=== PATIENT | male | born 1945 | race African-American/Black ===

== ENCOUNTER 2017-07-04 05:49 | Inpatient (IN) | payer OTHER ==
[~2017-07-04] VITALS: Ht 175.3 cm; Wt 79.5 kg
[2017-07-04] VITALS (8 sets, daily range): BP systolic 111–149; BP diastolic 51–97
[2017-07-04] MEDS ORDERED: METHYLPREDNISOLONE SOD SUCC 125 MG/2 ML VIAL IV STA (06:03)
[2017-07-04] MEDS ORDERED: IPRATROPIUM BROMIDE (0.02%) 0.5MG/2.5ML NEB HHN STA (06:03)
[2017-07-04] MEDS ORDERED: ALBUTEROL (0.083%) 2.5MG/3ML NEB HHN STA (06:03)
[2017-07-04] MEDS ORDERED: MAGNESIUM 2 G PREMIX 50 ML IV ONE (06:15)
[2017-07-04] MEDS ORDERED: LEVOFLOXACIN 500MG PREMIX 100 ML IV ONE (06:30)
[2017-07-04 07:01] LABS: BASOPHILS % 0.7 % (0.0-2.0); EOSINOPHILS % 5.3 % (0.0-5.0); HEMATOCRIT. 38.7 % (42.0-52.0); HEMOGLOBIN. 12.4 g/dL (14.0-18.0); LYMPHOCYTES % 13.8 % (20.0-50.0); MEAN CORPUSCULAR HEMOGLOBIN 27.2 pg (28.0-32.0); MEAN CORPUSCULAR VOLUME 84.9 fL (80.0-94.0); MEAN PLATELET VOLUME 7.5 fl (7.4-10.4); MONOCYTES % 6.6 % (2.0-8.0); NEUTROPHILS % 73.6 % (40.0-76.0); PLATELET 262 x1000/uL (130-400); RED BLOOD CELL COUNT 4.55 mill/uL (4.7-6.1); RED CELL DISTRIBUTION WIDTH 18.7 % (11.6-14.6)
[2017-07-04 07:02] LABS: CHLORIDE 101 mEq/L (98-107)
[2017-07-04 07:07] LABS: TROPONIN I < 0.02 ng/mL (0.00-0.04)
[2017-07-04 07:09] LABS: PARTIAL THROMBOPLASTIN TIME 26.3 sec (23.4-31.0); PROTHROMBIN TIME 10.1 sec (9.4-11.6)
[2017-07-04 09:33] LABS: BG BASE EXCESS -1.4 mmol/L (-2.0-2.0); BG BILEVEL POS AIRWAY PRESSURE 15/5; BG CARBOXYHEMOGLOBIN 0.7 % (0.5-1.5); BG FRACTION INSPIRED OXYGEN 40; BG HCO3 ACT 24.3 mmol/L (22.0-26.0); BG METHEMOGLOBIN 0.3 % (0.0-1.5); BG PH 7.351 (7.350-7.450); BG PO2 113.8 mmHg (75.0-100.0); BG SAMPLE SITE RIGHT BRACHIAL; BG TOTAL HEMOGLOBIN 12.6 g/dL (12.0-18.0); BG VENT MODE MASK - BIPAP; BG VENT RATE 16 set
[2017-07-04] MEDS ORDERED: ONDANSETRON HCL 4MG/2ML VIAL IV PRN (13:00)
[2017-07-04] MEDS ORDERED: DOCUSATE SODIUM 100MG CAPSULE PO PRN (13:00)
[2017-07-04] MEDS ORDERED: MAGNESIUM/ALUMINUM HYDROXIDE/SIMETHICONE 30ML UDC PO PRN (13:00)
[2017-07-04] MEDS ORDERED: HYDROCODONE/ACETAMINOPHEN 5/325MG TABLET PO PRN (13:00)
[2017-07-04] MEDS ORDERED: CLONIDINE 0.1MG TABLET PO PRN (13:00)
[2017-07-04] MEDS ORDERED: ACETAMINOPHEN 325MG TABLET PO PRN (13:00)
[2017-07-04] MEDS: BUDESONIDE 0.5MG/2ML NEB HHN SCH ×2 (13:14→20:05)
[2017-07-04] MEDS: AZITHROMYCIN 500 MG TABLET PO SCH (14:13)
[2017-07-04] MEDS: METHYLPREDNISOLONE SOD SUCC 40 MG/ML VIAL IV SCH ×2 (14:13→21:07)
[2017-07-04] MEDS: ENOXAPARIN 40MG/0.4ML SYR SUBCUT SCH (14:13)
[2017-07-04 16:06] LABS: CHLORIDE 100 mEq/L (98-107)
[2017-07-04 16:14] LABS: CREATINE KINASE 171 IU/L (39-308); CREATINE KINASE MB FRACTION 2.7 ng/mL (0.5-3.6); TROPONIN I < 0.02 ng/mL (0.00-0.04)
[2017-07-04] MEDS ORDERED: THIAMINE HCL 100MG TABLET PO NR (16:30)
[2017-07-04] MEDS ORDERED: NICOTINE 21MG PATCH TD NR (17:00)
[2017-07-04] MEDS ORDERED: DEXTROSE 50% WATER 50ML SYRINGE IV PRN (17:15)
[2017-07-04] MEDS: BLOOD SUGAR DIAGNOSTIC STRIP TEST SCH ×2 (17:39→20:56)
[2017-07-04] MEDS: INSULIN LISPRO 100 UNITS/ML SUBCUT SCH ×2 (17:49→21:06)
[2017-07-04 18:39] LABS: CLARITY URINE CLEAR (CLEAR); COLOR URINE YELLOW (YELLOW); KETONES URINE NEGATIVE (NEGATIVE); LEUKOCYTE ESTERASE URINE NEGATIVE (NEGATIVE); NITRITE URINE NEGATIVE (NEGATIVE); OCCULT BLOOD URINE NEGATIVE (NEGATIVE); PH URINE 6.5 (4.5-8.0); PROTEIN URINE NEGATIVE (NEGATIVE); SPECIFIC GRAVITY URINE 1.009 (1.005-1.030)
[2017-07-04 19:12] LABS: *AMPHETAMINES SCREEN URINE NEGATIVE (NEGATIVE); *BARBITURATES SCREEN URINE NEGATIVE (NEGATIVE); *BENZODIAZEPINES SCREEN URINE NEGATIVE (NEGATIVE); *COCAINE SCREEN URINE NEGATIVE (NEGATIVE); CANNABINOID URINE SCREEN NEGATIVE (NEGATIVE); METHADONE URINE SCREEN NEGATIVE (NEGATIVE); OPIATES URINE SCREEN NEGATIVE (NEGATIVE); PHENCYCLIDINE URINE SCREEN NEGATIVE (NEGATIVE)
[2017-07-04] MEDS: IPRATROPIUM/ALBUTEROL 0.5-3(2.5)MG/3ML NEB INH PRN (20:05)
[2017-07-04] MEDS: FAMOTIDINE 20MG/2ML VIAL IV SCH (21:07)
[2017-07-05] VITALS (8 sets, daily range): BP systolic 101–147; BP diastolic 25–98
[2017-07-05 00:08] LABS: CREATINE KINASE 170 IU/L (39-308); CREATINE KINASE MB FRACTION 2.5 ng/mL (0.5-3.6); TROPONIN I < 0.02 ng/mL (0.00-0.04)
[2017-07-05] MEDS ORDERED: ASPI-1159 PO (04:21)
[2017-07-05] MEDS ORDERED: METF500T4 PO (04:22)
[2017-07-05] MEDS: BLOOD SUGAR DIAGNOSTIC STRIP TEST SCH ×3 (05:27→16:27)
[2017-07-05] MEDS: METHYLPREDNISOLONE SOD SUCC 40 MG/ML VIAL IV SCH ×2 (05:57→14:00)
[2017-07-05] MEDS: INSULIN LISPRO 100 UNITS/ML SUBCUT SCH ×2 (07:20→11:39)
[2017-07-05 07:35] LABS: BASOPHILS % 0.4 % (0.0-2.0); HEMATOCRIT. 36.1 % (42.0-52.0); HEMOGLOBIN. 11.7 g/dL (14.0-18.0); MEAN CORPUSCULAR HEMOGLOBIN 27.2 pg (28.0-32.0); MEAN CORPUSCULAR VOLUME 84.3 fL (80.0-94.0); MONOCYTES % 4.6 % (2.0-8.0); PLATELET 281 x1000/uL (130-400); RED BLOOD CELL COUNT 4.29 mill/uL (4.7-6.1); RED CELL DISTRIBUTION WIDTH 18.9 % (11.6-14.6)
[2017-07-05] MEDS: BUDESONIDE 0.5MG/2ML NEB HHN SCH (08:36)
[2017-07-05] MEDS: IPRATROPIUM/ALBUTEROL 0.5-3(2.5)MG/3ML NEB INH PRN ×2 (08:37→12:39)
[2017-07-05] MEDS: AZITHROMYCIN 500 MG TABLET PO SCH (08:44)
[2017-07-05] MEDS: FAMOTIDINE 20MG/2ML VIAL IV SCH (08:45)
[2017-07-05] MEDS ORDERED: FOLIC ACID 1MG TABLET PO SCH (09:00)
[2017-07-05] MEDS ORDERED: NICOTINE 21MG PATCH TD SCH (09:00)
[2017-07-05] MEDS ORDERED: MULTIVITAMINS,THER W-MINERALS TABLET PO SCH (09:00)
[2017-07-05] MEDS ORDERED: THIAMINE HCL 100MG TABLET PO SCH (09:00)
[2017-07-05] MEDS ORDERED: FOLI-43 PO (13:26)
[2017-07-05] MEDS ORDERED: NICO-682 TD (13:26)
[2017-07-05] MEDS ORDERED: THIA100T72 PO (13:26)
[2017-07-05] MEDS ORDERED: DOCU-138 PO (13:26)
[2017-07-05] MEDS ORDERED: AZIT500T5 PO (13:26)
[2017-07-05] MEDS ORDERED: LIP40 PO (13:26)
[2017-07-05] MEDS ORDERED: ASPIRIN 81MG EC TABLET PO SCH (14:00)
[2017-07-05] MEDS: ENOXAPARIN 40MG/0.4ML SYR SUBCUT SCH (14:47)
[2017-07-05] MEDS ORDERED: METFORMIN HCL 500MG TABLET PO SCH (17:20)
[2017-07-05] MEDS ORDERED: ATORVASTATIN CALCIUM 40MG TABLET PO SCH (21:00)
== END 2017-07-05 17:21 | disposition home or self-care (01) | DRG 193 ==
LOC: ER 05:50 → EDBEDREQ 07:47 → ENRESERV 09:53 → 3WST 11:29
PROVIDERS: ADMIT Internal Medicine; ATTEND Internal Medicine
PROC: 5A09357 Assistance with Respiratory Ventilation, Less than 24 Consecutive Hours, Continuous Positive Airway Pressure (ICD-10-PCS; principal; 2017-07-04)
DX: J18.9 Pneumonia, unspecified organism (principal); J96.01 Acute respiratory failure with hypoxia; J44.1 Chronic obstructive pulmonary disease with (acute) exacerbation; J44.0 Chronic obstructive pulmonary disease with (acute) lower respiratory infection; D64.9 Anemia, unspecified; I10 Essential (primary) hypertension; F17.210 Nicotine dependence, cigarettes, uncomplicated; E11.65 Type 2 diabetes mellitus with hyperglycemia; K27.9 Peptic ulcer, site unspecified, unspecified as acute or chronic, without hemorrhage or perforation; F19.10 Other psychoactive substance abuse, uncomplicated; Z91.19 Patient's noncompliance with other medical treatment and regimen; Z71.51 Drug abuse counseling and surveillance of drug abuser; Z71.6 Tobacco abuse counseling
CPT/HCPCS: 36415; 36600; 71045; 80048; 80053; 80061; 80305; 81003; 82375; 82550; 82553; 82805; 82962; 83036; 83605; 83690; 83735; 83880; 84443; 84484; 85025; 85610; 85730; 87040; 87070; 87086; 87804; 93005; 93970; 94640; 94644; 94660; 96365; 96366; 96368; 96375; 99291; J1650; J1815; J1956; J2920; J2930; J3475; J3490; J7611; J7620; J7626

== ENCOUNTER 2017-08-19 07:26 | Inpatient (IN) | payer OTHER ==
[~2017-08-19] VITALS: Ht 175.3 cm; Wt 81.4 kg
[~2017-08-19 07:26] MED LIST: ASPI-1159 PO; AZIT500T5 PO; DOCU-138 PO; FOLI-43 PO; LIP40 PO; METF500T4 PO; NICO-682 TD; THIA100T72 PO
[2017-08-19] MEDS ORDERED: METHYLPREDNISOLONE SOD SUCC 125 MG/2 ML VIAL IV STA (07:28)
[2017-08-19] MEDS ORDERED: IPRATROPIUM/ALBUTEROL 0.5-3(2.5)MG/3ML NEB HHN ONE (07:30)
[2017-08-19] MEDS ORDERED: MAGNESIUM 2 G PREMIX 50 ML IV ONE (07:30)
[2017-08-19 08:07] LABS: BASOPHILS % 1.1 % (0.0-2.0); EOSINOPHILS % 13.9 % (0.0-5.0); HEMATOCRIT. 39.9 % (42.0-52.0); LYMPHOCYTES % 18.3 % (20.0-50.0); MEAN CORPUSCULAR HEMOGLOBIN 28.2 pg (28.0-32.0); MEAN CORPUSCULAR VOLUME 86.4 fL (80.0-94.0); MEAN PLATELET VOLUME 7.2 fl (7.4-10.4); MONOCYTES % 10.3 % (2.0-8.0); NEUTROPHILS % 56.4 % (40.0-76.0); PLATELET 306 x1000/uL (130-400); RED BLOOD CELL COUNT 4.62 mill/uL (4.7-6.1); RED CELL DISTRIBUTION WIDTH 18.1 % (11.6-14.6)
[2017-08-19 08:09] LABS: CHLORIDE 104 mEq/L (98-107)
[2017-08-19 08:12] LABS: PARTIAL THROMBOPLASTIN TIME 28.7 sec (23.4-31.0); PROTHROMBIN TIME 10.2 sec (9.4-11.6)
[2017-08-19 09:34] LABS: BG BASE EXCESS 0.1 mmol/L (-2.0-2.0); BG CARBOXYHEMOGLOBIN 1.6 % (0.5-1.5); BG DEOXYHEMOGLOBIN 9.5 % (0.0-5.0); BG FRACTION INSPIRED OXYGEN 21; BG HCO3 ACT 25.5 mmol/L (22.0-26.0); BG METHEMOGLOBIN 0.1 % (0.0-1.5); BG OXYHEMOGLOBIN 88.8 % (94.0-97.0); BG PCO2 44.1 mmHg (35.0-45.0); BG PO2 60.2 mmHg (75.0-100.0); BG SAMPLE SITE RIGHT BRACHIAL; BG TOTAL HEMOGLOBIN 13.7 g/dL (12.0-18.0); BG VENT MODE ROOM AIR
[2017-08-19 12:12] VITALS: BP 142/98
[2017-08-19 12:30] VITALS: BP 142/98
[2017-08-19 13:00] VITALS: BP 142/98
[2017-08-19] MEDS ORDERED: CLONIDINE 0.1MG TABLET PO SCH (13:45)
[2017-08-19] MEDS: METHYLPREDNISOLONE SOD SUCC 40 MG/ML VIAL IV SCH ×2 (16:13→21:03)
[2017-08-19] MEDS: ENOXAPARIN 40MG/0.4ML SYR SUBCUT SCH (16:14)
[2017-08-19] MEDS: AZITHROMYCIN 500 MG TABLET PO SCH (16:14)
[2017-08-19] MEDS: SODIUM CHLORIDE 0.9% 1,000 ML IV SCH (16:16)
[2017-08-19 16:20] VITALS: BP 137/87
[2017-08-19] MEDS ORDERED: DEXTROSE 50% WATER 50ML SYRINGE IV PRN (18:15)
[2017-08-19] MEDS ORDERED: DOCUSATE SODIUM 100MG CAPSULE PO PRN (18:15)
[2017-08-19] MEDS: FOLIC ACID 1MG TABLET PO SCH (19:01)
[2017-08-19] MEDS: THIAMINE HCL 100MG TABLET PO SCH (19:01)
[2017-08-19] MEDS: METFORMIN HCL 500MG TABLET PO SCH (19:01)
[2017-08-19] MEDS: ASPIRIN 81MG EC TABLET PO SCH (19:01)
[2017-08-19 20:00] VITALS: BP 129/74
[2017-08-19] MEDS ORDERED: ATORVASTATIN CALCIUM 40MG TABLET PO SCH (21:00)
[2017-08-19] MEDS: BLOOD SUGAR DIAGNOSTIC STRIP TEST SCH (21:03)
[2017-08-19] MEDS: NICOTINE 21MG PATCH TD SCH (21:05)
[2017-08-19] MEDS: BUDESONIDE 0.5MG/2ML NEB HHN SCH (21:34)
[2017-08-19] MEDS: IPRATROPIUM/ALBUTEROL 0.5-3(2.5)MG/3ML NEB HHN SCH (21:44)
[2017-08-19] MEDS ORDERED: CLONIDINE 0.1MG TABLET PO PRN (21:45)
[2017-08-19] MEDS: INSULIN LISPRO 100 UNITS/ML SUBCUT SCH (21:50)
[2017-08-20] VITALS: BP 136/80
[2017-08-20] MEDS: IPRATROPIUM/ALBUTEROL 0.5-3(2.5)MG/3ML NEB HHN SCH ×3 (00:38→09:27)
[2017-08-20 04:00] VITALS: BP 124/72
[2017-08-20] MEDS: METHYLPREDNISOLONE SOD SUCC 40 MG/ML VIAL IV SCH (05:36)
[2017-08-20] MEDS: SODIUM CHLORIDE 0.9% 1,000 ML IV SCH (05:36)
[2017-08-20] MEDS: BLOOD SUGAR DIAGNOSTIC STRIP TEST SCH ×2 (05:42→12:37)
[2017-08-20] MEDS: INSULIN LISPRO 100 UNITS/ML SUBCUT SCH ×2 (05:52→12:40)
[2017-08-20 06:24] LABS: BASOPHILS % 0.2 % (0.0-2.0); HEMATOCRIT. 39.7 % (42.0-52.0); LYMPHOCYTES % 11.3 % (20.0-50.0); MEAN CORPUSCULAR HEMOGLOBIN 28.3 pg (28.0-32.0); MEAN CORPUSCULAR VOLUME 86.5 fL (80.0-94.0); MEAN PLATELET VOLUME 7.7 fl (7.4-10.4); MONOCYTES % 3.2 % (2.0-8.0); NEUTROPHILS % 85.3 % (40.0-76.0); PLATELET 308 x1000/uL (130-400); RED BLOOD CELL COUNT 4.59 mill/uL (4.7-6.1)
[2017-08-20 07:23] LABS: CHLORIDE 103 mEq/L (98-107)
[2017-08-20 08:00] VITALS: BP 103/79
[2017-08-20] MEDS: AZITHROMYCIN 500 MG TABLET PO SCH (08:27)
[2017-08-20] MEDS: ASPIRIN 81MG EC TABLET PO SCH (08:27)
[2017-08-20] MEDS: FOLIC ACID 1MG TABLET PO SCH (08:27)
[2017-08-20] MEDS: THIAMINE HCL 100MG TABLET PO SCH (08:27)
[2017-08-20] MEDS: METFORMIN HCL 500MG TABLET PO SCH (08:27)
[2017-08-20] MEDS: ENOXAPARIN 40MG/0.4ML SYR SUBCUT SCH (08:28)
[2017-08-20] MEDS: NICOTINE 21MG PATCH TD SCH (08:30)
[2017-08-20] MEDS: BUDESONIDE 0.5MG/2ML NEB HHN SCH (09:27)
[2017-08-20 13:13] VITALS: BP 136/86
== END 2017-08-20 13:20 | disposition home or self-care (01) | DRG 189 ==
LOC: ER 07:43 → ENRESERV 11:22 → 5WST 11:30 → EDBEDREQ 11:38
PROVIDERS: ADMIT Internal Medicine; ATTEND Internal Medicine
DX: J96.02 Acute respiratory failure with hypercapnia (principal); J44.1 Chronic obstructive pulmonary disease with (acute) exacerbation; E11.9 Type 2 diabetes mellitus without complications; F17.210 Nicotine dependence, cigarettes, uncomplicated; I10 Essential (primary) hypertension; Z79.82 Long term (current) use of aspirin; Z79.84 Long term (current) use of oral hypoglycemic drugs; Z79.899 Other long term (current) drug therapy; Z79.2 Long term (current) use of antibiotics
CPT/HCPCS: 36415; 36600; 71045; 80053; 82375; 82565; 82805; 82962; 83036; 83605; 83880; 84484; 85025; 85610; 85730; 87040; 87086; 93005; 94640; J1650; J1815; J2920; J2930; J3475; J7030; J7620; J7626

== ENCOUNTER 2018-09-10 10:44 | Inpatient (IN) | payer MEDICARE, OTHER ==
[~2018-09-10] VITALS: Ht 175.3 cm; Wt 78.5 kg
[~2018-09-10 10:44] MED LIST changes: +METF-414 PO; -METF500T4 PO
[2018-09-10] MEDS ORDERED: IPRATROPIUM BROMIDE (0.02%) 0.5MG/2.5ML NEB HHN STA (10:48)
[2018-09-10] MEDS ORDERED: METHYLPREDNISOLONE SOD SUCC 125 MG/2 ML VIAL IV STA (10:48)
[2018-09-10] MEDS ORDERED: SODIUM CHLORIDE 0.9% 1,000 ML IV ONE (10:48)
[2018-09-10] MEDS ORDERED: MAGNESIUM 2 G PREMIX 50 ML IV ONE (11:00)
[2018-09-10] MEDS: ALBUTEROL (0.083%) 2.5MG/3ML NEB HHN SCH ×3 (11:00→12:00)
[2018-09-10 11:02] LABS: BASOPHILS % 1.1 % (0.0-2.0); EOSINOPHILS % 9.1 % (0.0-5.0); HEMOGLOBIN. 14.8 g/dL (14.0-18.0); LYMPHOCYTES % 28.5 % (20.0-50.0); MEAN CORPUSCULAR HEMOGLOBIN 30.4 pg (28.0-32.0); MEAN CORPUSCULAR VOLUME 92.3 fL (80.0-94.0); MEAN PLATELET VOLUME 7.1 fl (7.4-10.4); MONOCYTES % 9.3 % (2.0-8.0); PLATELET 263 x1000/uL (130-400); RED BLOOD CELL COUNT 4.87 mill/uL (4.7-6.1); RED CELL DISTRIBUTION WIDTH 14.6 % (11.6-14.6)
[2018-09-10 11:09] LABS: CHLORIDE 111 mEq/L (98-107); INR 0.9; PROTHROMBIN TIME 9.6 sec (9.6-11.0)
[2018-09-10] MEDS ORDERED: ACETAMINOPHEN 325MG TABLET PO PRN (13:15)
[2018-09-10] MEDS ORDERED: CLONIDINE 0.1MG TABLET PO PRN (13:15)
[2018-09-10] MEDS ORDERED: METHYLPREDNISOLONE SOD SUCC 40 MG/ML VIAL IV SCH (13:15)
[2018-09-10] MEDS ORDERED: IPRATROPIUM/ALBUTEROL 0.5-3(2.5)MG/3ML NEB HHN PRN (13:15)
[2018-09-10] MEDS ORDERED: ONDANSETRON HCL 4MG/2ML INJ IV PRN (13:15)
[2018-09-10 16:00] VITALS: BP 144/88
[2018-09-10] MEDS ORDERED: IPRATROPIUM/ALBUTEROL 0.5-3(2.5)MG/3ML NEB HHN SCH (16:00)
[2018-09-10 18:00] VITALS: BP 64/42
[2018-09-10] MEDS: MONTELUKAST SODIUM 10MG TABLET PO SCH (18:41)
[2018-09-10] MEDS: METFORMIN HCL 500MG TABLET PO SCH (18:42)
[2018-09-10] MEDS: ENOXAPARIN 40MG/0.4ML SYR SUBCUT SCH (18:43)
[2018-09-10] MEDS ORDERED: ALBUTEROL (0.083%) 2.5MG/3ML NEB HHN PRN (19:00)
[2018-09-10] MEDS ORDERED: DEXTROSE 50% WATER 50ML SYRINGE IV PRN (19:00)
[2018-09-10 20:00] VITALS: BP 137/83
[2018-09-10] MEDS: IPRATROPIUM/ALBUTEROL 0.5-3(2.5)MG/3ML NEB HHN SCH (20:13)
[2018-09-10] MEDS ORDERED: ZOLPIDEM TARTRATE 5MG TABLET PO PRN (21:00)
[2018-09-10] MEDS ORDERED: AZITHROMYCIN 500 MG in DEXT 5% WATER 250 ML IV SCH (21:00)
[2018-09-10] MEDS: AMLODIPINE 5MG TABLET PO SCH (21:20)
[2018-09-10] MEDS: BLOOD SUGAR DIAGNOSTIC STRIP TEST SCH (21:25)
[2018-09-10] MEDS: METHYLPREDNISOLONE SOD SUCC 40 MG/ML VIAL IV SCH (21:31)
[2018-09-10] MEDS: INSULIN LISPRO 100 UNITS/ML SUBCUT SCH (21:32)
[2018-09-10 22:00] VITALS: BP 126/86
[2018-09-10 23:30] VITALS: BP 126/85
[2018-09-11] VITALS (9 sets, daily range): BP systolic 107–147; BP diastolic 61–98
[2018-09-11 06:02] LABS: BASOPHILS % 0.2 % (0.0-2.0); HEMATOCRIT. 41.6 % (42.0-52.0); HEMOGLOBIN. 13.9 g/dL (14.0-18.0); LYMPHOCYTES % 8.7 % (20.0-50.0); MEAN CORPUSCULAR HEMOGLOBIN 30.8 pg (28.0-32.0); MEAN CORPUSCULAR VOLUME 92.5 fL (80.0-94.0); MEAN PLATELET VOLUME 7.4 fl (7.4-10.4); MONOCYTES % 1.3 % (2.0-8.0); NEUTROPHILS % 89.8 % (40.0-76.0); PLATELET 232 x1000/uL (130-400); RED CELL DISTRIBUTION WIDTH 14.8 % (11.6-14.6)
[2018-09-11] MEDS: METHYLPREDNISOLONE SOD SUCC 40 MG/ML VIAL IV SCH ×2 (06:04→14:55)
[2018-09-11 06:07] LABS: CHLORIDE 105 mEq/L (98-107)
[2018-09-11] MEDS: INSULIN LISPRO 100 UNITS/ML SUBCUT SCH ×3 (07:10→18:24)
[2018-09-11] MEDS: BLOOD SUGAR DIAGNOSTIC STRIP TEST SCH ×3 (07:10→17:01)
[2018-09-11] MEDS: METFORMIN HCL 500MG TABLET PO SCH ×2 (08:08→17:10)
[2018-09-11] MEDS: AMLODIPINE 5MG TABLET PO SCH (08:10)
[2018-09-11] MEDS: ENOXAPARIN 40MG/0.4ML SYR SUBCUT SCH (08:10)
[2018-09-11] MEDS: IPRATROPIUM/ALBUTEROL 0.5-3(2.5)MG/3ML NEB HHN SCH ×3 (08:39→16:15)
[2018-09-11 12:42] LABS: BG CARBOXYHEMOGLOBIN 0.4 % (0.5-1.5); BG DEOXYHEMOGLOBIN 3.5 % (0.0-5.0); BG FRACTION INSPIRED OXYGEN 21; BG METHEMOGLOBIN 0.4 % (0.0-1.5); BG OXYGEN SATURATION 96.5 % (92.0-98.5); BG OXYHEMOGLOBIN 95.7 % (94.0-97.0); BG PCO2 35.9 mmHg (35.0-45.0); BG PH 7.406 (7.350-7.450); BG PO2 85.8 mmHg (75.0-100.0); BG SAMPLE SITE RIGHT RADIAL; BG TOTAL HEMOGLOBIN 14.8 g/dL (12.0-18.0); BG VENT MODE ROOM AIR
[2018-09-11] MEDS: MONTELUKAST SODIUM 10MG TABLET PO SCH (17:10)
== END 2018-09-11 19:11 | disposition home or self-care (01) | DRG 189 ==
LOC: ER 10:49 → 5EST 13:02 → EDBEDREQ 13:14 → EDBEDREQSVC 13:14 → ENRESERV 14:29
PROVIDERS: ADMIT Internal Medicine; ATTEND Internal Medicine
PROC: 5A09357 Assistance with Respiratory Ventilation, Less than 24 Consecutive Hours, Continuous Positive Airway Pressure (ICD-10-PCS; principal; 2018-09-10)
DX: J96.00 Acute respiratory failure, unspecified whether with hypoxia or hypercapnia (principal); J44.1 Chronic obstructive pulmonary disease with (acute) exacerbation; E11.9 Type 2 diabetes mellitus without complications; E87.8 Other disorders of electrolyte and fluid balance, not elsewhere classified; F17.200 Nicotine dependence, unspecified, uncomplicated; J06.9 Acute upper respiratory infection, unspecified; I10 Essential (primary) hypertension; Z79.82 Long term (current) use of aspirin; Z79.84 Long term (current) use of oral hypoglycemic drugs; Z79.899 Other long term (current) drug therapy; Z87.01 Personal history of pneumonia (recurrent); Z79.2 Long term (current) use of antibiotics
CPT/HCPCS: 36415; 36600; 71045; 80048; 82375; 82805; 82962; 83605; 83880; 84484; 93005; 96374; 96375; 99285; J0456; J1650; J1815; J2920; J2930; J3475; J7030; J7050; J7060; J7611; J7620